=== PATIENT | female | born 1980 | race Two or more races ===

== ENCOUNTER 2016-08-19 01:44 | Emergency (ER) | payer BC ==
[~2016-08-19 01:44] MED LIST: ACET50TA PO; CILO0.3S OD; IBUP100SUS PO
[2016-08-19] MEDS ORDERED: ONDANSETRON 4MG/2ML VIAL (J2405) As Ordered ONE (03:08)
[2016-08-19] MEDS ORDERED: MORPHINE 4 MG/ML 1ML SYRINGE As Ordered ONE ×2 (03:09→04:27)
[2016-08-19 03:28] LABS: BASO % 0.4 % (0.0-1.0); EOS # 0.1 K/mm3 (0.0-0.50); EOS % 1.8 % (0.0-3.0); LARGE UNSTAINED CELL # 0.1 K/mm3 (0.0-0.4); LARGE UNSTAINED CELL % 1.7 % (0.0-4.0); LYMPH # 1.8 K/mm3 (1.5-4.5); LYMPH % 22.7 % (24.0-44.0); MEAN CORPUSCULAR HEMOGLOBIN 30.3 pg (27.0-33.0); MEAN CORPUSCULAR HGB CONC 33.3 g/dl (32.0-36.5); MEAN CORPUSCULAR VOLUME 90.9 fl (80.0-96.0); MONO # 0.4 K/mm3 (0.0-0.8); MONO % 4.6 % (0.0-5.0); NEUTROPHILS # 5.4 K/mm3 (1.8-7.7); NEUTROPHILS % 68.8 % (36.0-66.0); PLATELET COUNT, AUTOMATED 253 k/mm3 (150-450); RED CELL DISTRIBUTION WIDTH 11.8 % (11.5-14.5); WHITE BLOOD COUNT 7.9 K/mm3 (4.0-10.0)
[2016-08-19 03:45] LABS: ANION GAP 6 MEQ/L (8-16); BLOOD UREA NITROGEN 9 MG/DL (7-18); CALCIUM LEVEL 8.8 MG/DL (8.5-10.1); CARBON DIOXIDE LEVEL 28 MEQ/L (21-32); CHLORIDE LEVEL 109 MEQ/L (98-107); CREATININE FOR GFR 0.78 MG/DL (0.55-1.02); GLOMERULAR FILTRATION RATE > 60.0 (>60); GLUCOSE, FASTING 99 MG/DL (70-105); POTASSIUM SERUM 4.2 MEQ/L (3.5-5.1); SODIUM LEVEL 143 MEQ/L (136-145)
--- NOTE | 2016-08-19 04:13 | REP ---
Clinical: Epigastric and abdominal pain. Technique: Upright view of the chest with supine and upright views of the abdomen and pelvis. Findings: Frontal upright view of the chest demonstrates no acute cardiopulmonary process or free air below the diaphragm to suspect pneumoperitoneum. Supine and upright views of the abdomen and pelvis demonstrate nonspecific bowel gas pattern without obstruction or perforation. No organomegaly. No abnormal calcifications. Evidence for tubal ligation. Skeletal structures normal for age. Impression: Fecal stasis. Nonspecific bowel gas pattern. Signed by Tim Sanford MD 08/19/2016 04:05 A
[2016-08-19] MEDS ORDERED: ISOVUE-370 76% 100ML VIAL (Q9967) As Ordered ONE (05:19)
--- NOTE | 2016-08-19 06:00 | REPUSA ---
CLINICAL HISTORY: Abdominal pain. TECHNIQUE: Multiple axial, sagittal and coronal CT images were obtained through the abdomen and pelvi s after administration of intravenous contrast material. COMMENTS: Moderate large bowel fecal stasis. Moderate diffuse gaseous dilation of the colon. Thickening of the rectosigmoid junction with enhancement. Small sliding hiatal hernia. The liver is of uniform attenuation without mass or defect. There is no intra or extrahepatic biliary ductal dilatation. The spleen is normal. The gallbladder is within normal limits. The pancreas is of normal contour and attenuation characteristics. There is no evidence of adrenal mass. Both kidneys demonstrate prompt and equal nephrograms. The kidneys are normal in size, shape and conf iguration. There is no evidence of renal or ureteral mass. No renal or ureteral calculi are identifie d. There is no hydroureter or hydronephrosis. No evidence for appendicitis. No evidence for small or large bowel obstruction. There is no evidenc e of abdominal ascites or lymphadenopathy. There is no evidence of intrinsic or extrinsic bladder mass. There is no pelvic ascites or lymphadeno raquel. Images of the lung bases show no evidence of pleural or parenchymal mass. There are no pleural effusi ons. The bony structures are free of lytic or blastic lesions. IMPRESSION: Thickened, enhancing rectosigmoid junction suggestive of colitis. Moderate diffuse gaseous dilation of the colon. Small sliding hiatal hernia. Thank you for your kind referral of this patient.
[2016-08-19] MEDS ORDERED: NORCO 5/325MG TABLET (BULK) As Ordered ONE (06:53)
[2016-08-19] MEDS ORDERED: MAGNESIUM CITRATE 300 ML BTL As Ordered ONE (06:54)
--- NOTE | 2016-08-19 07:24 | EDDOCDS ---
Nurse's Notes [facility] Name: Yumi Segundo Age: 35 yrs Sex: Female : 1980 Arrival Date: 08/19/2016 Time: 01:44 Bed TR7 Private MD: Breana Moncada Diagnosis: Hemorrhoids and perianal venous thrombosis Presentation: 08/19 01:58 Presenting complaint: Patient states: Started 2 weeks ago with rectal pain. Tried OTC ld5 hemorrhoid meds with no relief. On Monday had the stomach bug and had diarrhea a few times. Once over that illness, hemorrhoids are back and worse. Pt also complains of feeling bloated and nauseous. Tried a suppository with little out and no relief. Risk factors: the patient reports no vaginal bleeding. Adult Sepsis Screening: The patient does not have new or worsening altered mentation. Patient's respiratory rate is less than 22. Systolic blood pressure is greater than 100. Patient has a qSOFA score of 0- Negative Sepsis Screen. Suicide/Homicide risk assessment- the patient denies having any suicidal and/or homicidal ideations and does not present with any other emotional, behavioral or mental health complaints. Status: Patient is not a sales agent protective service or dependent. Transition of care: patient was not received from another setting of care. 01:58 Acuity: FRANK Level 3 ld5 01:58 Method Of Arrival: Walkin/Carried/Asstd ld5 Triage Assessment: 02:03 General: Appears uncomfortable, Behavior is cooperative, crying. Pain: Location: ld5 rectum, lower abdominal pain Pain currently is 6 out of 10 on a pain scale. At worst was 10 out of 10 on a pain scale. HIV screening NA for this visit Offered previously. Neurological: Level of Consciousness is awake, alert. Respiratory: Airway is patent Respiratory effort is even, unlabored. GI: Reports bloating, constipation, hemorrhoids, lower abdominal pain, nausea. 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 Wellbutrin 75 mg Oral tab 1 tab daily - PMHx: Depression; Anxiety; - PSHx: Tubal ligation; - Social history: Smoking status: Patient uses tobacco products, current every day smoker. No barriers to communication noted, The patient speaks fluent Turkish, Speaks appropriately for age. - Family history: Not pertinent. - : The pt / caregiver states he / she is not on anticoagulants. Home medication list is obtained from the patient. - Exposure Risk Screening:: None identified. Screenin:25 Screening information is obtained from the patient. Fall risk: No risks identified. mlc Assistance ADL's: requires no assistance with activities of daily living. Abuse/DV Screen: The patient / caregiver reports he/she is: not in a situation that causes fear, pain or injury. Nutritional screening: The patient reports a change in bowel habits, constipation, The patient reports last bowel movement was 7 days ago. Advance Directives: Currently, there is no health care proxy. home support is adequate. Assessment: 03:25 General: Appears in no apparent distress, Behavior is cooperative, pleasant. Pain: mlc Location: right lower quadrant, left lower quadrant and anus Pain currently is 6 out of 10 on a pain scale. Neurological: Level of Consciousness is awake, alert, Oriented to person, place, time. Respiratory: Airway is patent Respiratory effort is even, unlabored, Respiratory pattern is regular. GI: Abdomen is non- distended Bowel sounds present X 4 quads. Abd is soft X 4 quads Abd is tender to palpation in right lower quadrant and left lower quadrant Reports constipation, nausea, no BM since last Monday. Derm: Skin is pink, warm & dry. 04:08 Reassessment: Patient appears in no apparent distress at this time. no significant mlc changes in pain, rated 5/10. resp easy/unlabored. . 04:32 Reassessment: pt medicated per order. resp easy/unlabored. . mlc 05:11 Reassessment: Patient appears in no apparent distress at this time. Patient states mlc feeling better. Patient states symptoms have improved. pain decreased to 2/10. resp easy/unlabored. . 05:31 General: Appears in no apparent distress, comfortable, pt returned from CT, tolerated mlc well. resp easy/unlabored. . 06:58 General: Appears in no apparent distress, comfortable, Behavior is cooperative. mlc Neurological: Level of Consciousness is awake, alert, Oriented to person, place, time. Respiratory: Airway is patent Respiratory effort is even, unlabored, Respiratory pattern is regular. Derm: Skin is pink, warm & dry. 07:22 General: Appears in no apparent distress, comfortable, Behavior is appropriate for age, ml6 cooperative. Pain: Denies pain. Neurological: No deficits noted. Level of Consciousness is awake, alert, Oriented to person, place, time. Cardiovascular: No deficits noted. Capillary refill < 3 seconds is brisk in bilateral fingers toes Heart tones S1 S2 present. Respiratory: No deficits noted. Airway is patent Respiratory effort is even, unlabored, Respiratory pattern is regular, symmetrical, Breath sounds are clear bilaterally. GI: Abdomen is flat, non- distended Bowel sounds present X 4 quads. Abd is soft and non tender X 4 quads. Vital Signs: 01:56 BP 140 / 85; Pulse 91; Resp 18; Temp 97.3; Pulse Ox 97% on R/A; Weight 77.11 kg (R); ld5 Height 5 ft. 6 in. (167.64 cm) (R); Pain 6/10; 04:08 BP 105 / 57; Pain 5/10; mlc 05:11 BP 100 / 56; Pulse 72; Resp 16; Pulse Ox 97% ; Pain 2/10; mlc 07:17 BP 112 / 61; Pulse 70; Resp 17; Temp 97.9(O); Pulse Ox 97% on R/A; lr2 01:56 Body Mass Index 27.44 (77.11 kg, 167.64 cm) ld5 Vitals: 01:56 Log In Time: August 19, 2016 at 01:44. ld5 ED Course: 01:46 Patient visited by Davin Ramirez Reg. pm4 01:46 Breana Moncada is Private Physician. pm4 01:46 Patient moved to Waiting pm4 02:02 Triage Initiated ld5 02:04 Patient visited by Rochelle Blum RN. ld5 02:05 Madelaine Stein,DANIELLA is Primary Nurse. jo3 02:05 Patient moved to 12 jo3 02:12 Rajeev Zamudio DO is PHCP. gk1 02:12 Dru Benavides DO is Attending Physician. gk1 02:25 Rajeev Zamudio DO is PHCP. mm11 03:25 The patient / caregiver is instructed regarding the plan of care and ED course. [facility] 03:25 Inserted saline lock: 20 gauge in right antecubital area and blood collected. The [facility] patient tolerated the procedure well. 03:27 Patient visited by Madelaine Stein RN. mlc 03:39 Patient visited by Rajeev Zamudio DO. gk1 03:39 Patient visited by Rajeev Zamudio DO. gk1 04:03 Patient visited by Rajeev Zamudio DO. gk1 04:07 [facility] Payment Agreement was scanned into [employer] and attached to record. hs2 04:08 Lactic Acid (Vazquez tube on ice) Sent. mlc 04:09 Patient visited by Madelaine Stein RN. mlc 04:09 Patient name changed from Yumi\S\\S\[place]\S\ to Yumi\S\[place]\S\[place]. EDMS 04:32 Patient visited by Madelaine Stein RN. mlc 04:36 Abdomen, Flat\E\Upright,PA Chest Returned. EDMS 05:12 Patient visited by Madelaine Stein RN. mlc 05:31 Patient visited by Madelaine Stein RN. mlc 06:28 Patient visited by Bandar Zuleta PCA. kb5 06:40 CT ABD & PELVIS: IV Contrast Only Returned. EDMS 06:59 Patient visited by Madelaine Stein RN. mlc 07:03 Patient visited by Rajeev Zamudio DO. gk1 07:04 Geovanni Dela Cruz DO is Referral Physician. gk1 07:20 Patient moved to TR7 ml6 07:23 Discontinued IV bleeding controlled, pressure dressing applied, No redness/swelling at ml6 site. No procedures done that require assistance. Administered Medications: 03:24 Drug: Ondansetron 4 mg [ondansetron HCl 2 mg/mL intravenous solution (2 mL)] Route: mlc IVP; Site: left antecubital; 04:08 Follow up: Response: Nausea is decreased [facility] 03:25 Drug: morphine 4 mg [morphine 4 mg/mL intravenous cartridge (1 mL)] Route: IVP; Site: mlc left antecubital; 04:08 Follow up: BP 105 / 57; Pain 5/10 Adult; Response: Pain is decreased [facility] 04:31 Drug: morphine 4 mg [morphine 4 mg/mL intravenous cartridge (1 mL)] Route: IVP; Site: mlc left antecubital; 05:11 Follow up: BP 100 / 56; Pulse 72 bpm; Resp 16 bpm; Pulse Ox 97% ; Pain 2/10 Adult; mlc Response: Pain is decreased 06:57 Drug: HYDROcodone-acetaminophen 4 pack- 1 packets [hydrocodone 5 mg-acetaminophen 325 mlc mg tablet (1 tabs)] {Co-Signature: ko2 (Carmen Miranda RN).} Route: PO; 06:58 Follow up: Response: Med's dispensed home mlc 06:57 Drug: Magnesium Citrate 300 ml [magnesium citrate oral solution (300 mL)] Route: PO; mlc 06:58 Follow up: Response: Med's dispensed home mlc Order Results: Lab Order: CBC with Diff; SPEC'M 08/19/16 03:17 Test: WHITE BLOOD COUNT; Value: 7.9; Range: 4.0-10.0; Units: K/mm3; Status: F Test: RED BLOOD COUNT; Value: 4.40; Range: 4.00-5.40; Units: M/mm3; Status: F Test: HEMOGLOBIN; Value: 13.4; Range: 12.0-16.0; Units: g/dl; Status: F Test: HEMATOCRIT; Value: 40.0; Range: 36.0-47.0; Units: %; Status: F Test: MEAN CORPUSCULAR VOLUME; Value: 90.9; Range: 80.0-96.0; Units: fl; Status: F Test: MEAN CORPUSCULAR HEMOGLOBIN; Value: 30.3; Range: 27.0-33.0; Units: pg; Status: F Test: MEAN CORPUSCULAR HGB CONC; Value: 33.3; Range: 32.0-36.5; Units: g/dl; Status: F Test: RED CELL DISTRIBUTION WIDTH; Value: 11.8; Range: 11.5-14.5; Units: %; Status: F Test: PLATELET COUNT, AUTOMATED; Value: 253; Range: 150-450; Units: k/mm3; Status: F Test: NEUTROPHILS %; Value: 68.8; Range: 36.0-66.0; Abnormal: Above high normal; Units: %; Status: F Test: LYMPH %; Value: 22.7; Range: 24.0-44.0; Abnormal: Below low normal; Units: %; Status: F Test: MONO %; Value: 4.6; Range: 0.0-5.0; Units: %; Status: F Test: EOS %; Value: 1.8; Range: 0.0-3.0; Units: %; Status: F Test: BASO %; Value: 0.4; Range: 0.0-1.0; Units: %; Status: F Test: LARGE UNSTAINED CELL %; Value: 1.7; Range: 0.0-4.0; Units: %; Status: F Test: NEUTROPHILS #; Value: 5.4; Range: 1.8-7.7; Units: K/mm3; Status: F Test: LYMPH #; Value: 1.8; Range: 1.5-4.5; Units: K/mm3; Status: F Test: MONO #; Value: 0.4; Range: 0.0-0.8; Units: K/mm3; Status: F Test: EOS #; Value: 0.1; Range: 0.0-0.50; Units: K/mm3; Status: F Test: BASO #; Value: 0.0; Range: 0.0-0.2; Units: K/mm3; Status: F Test: LARGE UNSTAINED CELL #; Value: 0.1; Range: 0.0-0.4; Units: K/mm3; Status: F Lab Order: [facility]; SPEC'M 08/19/16 03:17 Test: GLUCOSE, FASTING; Value: 99; Range: 70-105; Units: MG/DL; Status: F Test: BLOOD UREA NITROGEN; Value: 9; Range: 7-18; Units: MG/DL; Status: F Test: CREATININE FOR GFR; Value: 0.78; Range: 0.55-1.02; Units: MG/DL; Status: F Test: GLOMERULAR FILTRATION RATE; Value: > 60.0; Range: >60; Status: F Test: SODIUM LEVEL; Value: 143; Range: 136-145; Units: MEQ/L; Status: F Test: POTASSIUM SERUM; Value: 4.2; Range: 3.5-5.1; Units: MEQ/L; Status: F Test: CHLORIDE LEVEL; Value: 109; Range: 98-107; Abnormal: Above high normal; Units: MEQ/L; Status: F Test: CARBON DIOXIDE LEVEL; Value: 28; Range: 21-32; Units: MEQ/L; Status: F Test: ANION GAP; Value: 6; Range: 8-16; Abnormal: Below low normal; Units: MEQ/L; Status: F Test: CALCIUM LEVEL; Value: 8.8; Range: 8.5-10.1; Units: MG/DL; Status: F Test Note: ; Units are mL/min/1.73 m2 Chronic Kidney Disease Staging per NKF: Stage I & II GFR >=60 Normal to Mildly Decreased Stage III GFR 30-59 Moderately Decreased Stage IV GFR 15-29 Severely Decreased Stage V GFR <15 Very Little GFR Left ESRD GFR <15 on LINK TRAINER MECHANIC Lab Order: Lipase; SPEC'M 08/19/16 03:17 Test: LIPASE; Value: 115; Range: 73-393; Units: U/L; Status: F Lab Order: Lactic Acid (Vazquez tube on ice); SPEC'M 08/19/16 04:06 Test: LACTIC ACID SEPSIS PROTOCOL; Value: 0.5; Range: 0.4-2.0; Units: MMOL/L; Status: F Radiology Order: Abdomen, Flat\E\Upright,PA Chest Test: Abdomen, Flat\E\Upright,PA Chest REASON FOR EXAMINATION: Abdomen Pain; Clinical: Epigastric and abdominal pain.; ; Technique: Upright view of the chest with supine and upright views of the; abdomen and pelvis.; ; Findings: Frontal upright view of the chest demonstrates no acute; cardiopulmonary process or free air below the diaphragm to suspect; pneumoperitoneum. Supine and upright views of the abdomen and pelvis demonstrate; nonspecific bowel gas pattern without obstruction or perforation. No; organomegaly. No abnormal calcifications. Evidence for tubal ligation.; Skeletal structures normal for age.; ; Impression:; Fecal stasis. Nonspecific bowel gas pattern.; ; ; Signed by; Tim Sanford MD 08/19/2016 04:05 A; Radiology Order: CT ABD & PELVIS: IV Contrast Only Test: CT ABD & PELVIS: IV Contrast Only REASON FOR EXAMINATION: Abdomen Pain; ; CLINICAL HISTORY: Abdominal pain.; TECHNIQUE: Multiple axial, sagittal and coronal CT images were obtained through the abdomen and pelvi; s after administration of intravenous contrast material.; COMMENTS:; Moderate large bowel fecal stasis.; Moderate diffuse gaseous dilation of the colon.; Thickening of the rectosigmoid junction with enhancement.; Small sliding hiatal hernia.; The liver is of uniform attenuation without mass or defect. There is no intra or extrahepatic biliary; ductal dilatation. The spleen is normal. The gallbladder is within normal limits. The pancreas is of; normal contour and attenuation characteristics. There is no evidence of adrenal mass.; Both kidneys demonstrate prompt and equal nephrograms. The kidneys are normal in size, shape and conf; iguration. There is no evidence of renal or ureteral mass. No renal or ureteral calculi are identifie; d. There is no hydroureter or hydronephrosis.; No evidence for appendicitis. No evidence for small or large bowel obstruction. There is no evidenc; e of abdominal ascites or lymphadenopathy.; There is no evidence of intrinsic or extrinsic bladder mass. There is no pelvic ascites or lymphadeno; raquel.; Images of the lung bases show no evidence of pleural or parenchymal mass. There are no pleural effusi; ons.; The bony structures are free of lytic or blastic lesions.; IMPRESSION:; Thickened, enhancing rectosigmoid junction suggestive of colitis.; Moderate diffuse gaseous dilation of the colon.; Small sliding hiatal hernia.; Thank you for your kind referral of this patient.; ; Outcome: 07:07 Discharge ordered by Provider. gk1 07:23 Discharge Assessment: patient administered narcotics - yes. Pt provided with safe ml6 discharge. The following High Risk Discharge criteria are identified: None. Discharged to home ambulatory, with significant other. Condition: improved. Discharge instructions given to patient, Instructed on discharge instructions, follow up and referral plans. medication usage, Demonstrated understanding of instructions, medications, Pt was receptive of discharge instructions/ teaching. Prescriptions given X 1. No special radiology studies were completed. Property sent home with patient. :Personal belongings accompany Pt. 07:24 Patient left the ED. ml6 Signatures: Dispatcher [employer] EDMS Candy Narvaez RN RN jo3 Bandar Zuleta, JESSY TOOL SETTER kb5 Dru Benavides, DO DO mm11 Dru Gilbert RN RN ml6 Rochelle Blum RN RN ld5 Madelaine Stein RN RN [facility] Erin Davis, Reg Reg hs2 Rajeev Zamudio, DO DO gk1 Davin Ramirez, Reg Reg pm4 Rochelle Vergara lr2 Carmen Miranda RN ko2 MTDD
--- NOTE | 2016-08-19 07:24 | EDDOCDS ---
Physician Documentation [facility] Name: Yumi Segundo Age: 35 yrs Sex: Female : 1980 Arrival Date: 08/19/2016 Time: 01:44 Bed TR7 Private MD: Breana Moncada Disposition: 08/19 07:12 I have independently interviewed and examined the patient, and I agree with the mm11 investigation, diagnosis and treatment plan as documented by the Resident. Disposition: 08/19/16 07:07 Discharged to Home/Self Care. Impression: Hemorrhoids and perianal venous thrombosis. - Condition is Stable. - Discharge Instructions: Hemorrhoidectomy, Care After, Hemorrhoids, Hemorrhoids, [id number]. - Prescriptions for Percocet 5- 325 mg Oral Tablet - take 1 tablet by ORAL route every 6 hours As needed MDD: 4 tabs; 20 tablet. - Medication Reconciliation, Local Pharmacy Hours form. - Follow up: Geovanni Dela Cruz DO; When: 08/22/2016; Reason: Recheck today's complaints, Continuance of care, Ligation/removal of external hemorrhoids. - Problem is new. - Symptoms are unchanged. Historical: - Allergies: no known allergies; - Home Meds: 1. Wellbutrin 75 mg Oral tab 1 tab daily - PMHx: Depression; Anxiety; - PSHx: Tubal ligation; - Social history: Smoking status: Patient uses tobacco products, current every day smoker. No barriers to communication noted, The patient speaks fluent Gibraltarian, Speaks appropriately for age. - Family history: Not pertinent. - : The pt / caregiver states he / she is not on anticoagulants. Home medication list is obtained from the patient. - Exposure Risk Screening:: None identified. 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 6 in. (167.64 cm) (R); Pain 6/10; 04:08 BP 105 / 57; Pain 5/10; mlc 05:11 BP 100 / 56; Pulse 72; Resp 16; Pulse Ox 97% ; Pain 2/10; mlc 07:17 BP 112 / 61; Pulse 70; Resp 17; Temp 97.9(O); Pulse Ox 97% on R/A; lr2 01:56 Body Mass Index 27.44 (77.11 kg, 167.64 cm) ld5 MDM: 03:01 IV Saline Lock ordered. mm11 03:01 morphine 4 mg IVP every 30 minutes; Document pain score/vitals after each dose (Hold if mm11 SBP < 90mmHg) x2 ordered. 03:01 Ondansetron 4 mg IVP once ordered. mm11 03:02 CBC with Diff Ordered. EDMS 03:02 BMP Ordered. EDMS 03:02 Lipase Ordered. EDMS 03:03 Abdomen, Flat\E\Upright,PA Chest Ordered. EDMS 03:38 CBC with Diff Reviewed. mm11 03:39 Lactic Acid (Vazquez tube on ice) Ordered. EDMS 03:48 Financial registration complete. hs2 04:04 BMP Reviewed. gk1 04:04 Lipase Reviewed. gk1 04:07 [facility] Payment Agreement was scanned into [employer] and attached to record. hs2 05:14 CT ABD & PELVIS: IV Contrast Only Ordered. EDMS 05:53 Lactic Acid (Vazquez tube on ice) Reviewed. mm11 05:53 Abdomen, Flat\E\Upright,PA Chest Reviewed. mm11 06:44 HYDROcodone-acetaminophen 4 pack- 5 mg-325 mg 1 packets PO Per package directions; mm11 Dispense with patient. 1 po q4h prn for pain ordered. 06:44 Magnesium Citrate Liquid 300 ml PO once; Dispense home with pt. ordered. mm11 07:16 CT ABD & PELVIS: IV Contrast Only Reviewed. mm11 Administered Medications: 03:24 Drug: Ondansetron 4 mg [ondansetron HCl 2 mg/mL intravenous solution (2 mL)] Route: mlc IVP; Site: left antecubital; 04:08 Follow up: Response: Nausea is decreased [facility] 03:25 Drug: morphine 4 mg [morphine 4 mg/mL intravenous cartridge (1 mL)] Route: IVP; Site: mlc left antecubital; 04:08 Follow up: BP 105 / 57; Pain 5/10 Adult; Response: Pain is decreased [facility] 04:31 Drug: morphine 4 mg [morphine 4 mg/mL intravenous cartridge (1 mL)] Route: IVP; Site: mlc left antecubital; 05:11 Follow up: BP 100 / 56; Pulse 72 bpm; Resp 16 bpm; Pulse Ox 97% ; Pain 2/10 Adult; mlc Response: Pain is decreased 06:57 Drug: HYDROcodone-acetaminophen 4 pack- 1 packets [hydrocodone 5 mg-acetaminophen 325 mlc mg tablet (1 tabs)] {Co-Signature: ko2 (Carmen Miranda RN).} Route: PO; 06:58 Follow up: Response: Med's dispensed home mlc 06:57 Drug: Magnesium Citrate 300 ml [magnesium citrate oral solution (300 mL)] Route: PO; mlc 06:58 Follow up: Response: Med's dispensed home mlc Signatures: Dispatcher [employer] EDMS Dru Benavides, DO DO mm11 Dru Gilbert RN RN ml6 Rochelle Blum RN RN ld5 Madelaine Stein RN RN mlc Erin Davis, Reg Reg hs2 Gino Zamudiorpreet, DO DO gk1 Carmen Miranda RN ko2 The chart was reviewed and I authenticate all verbal orders and agree with the evaluation and treatment provided.Attachments: 04:07 [facility] Payment Agreement hs2 MTDD
--- NOTE | 2016-08-21 08:25 | EDDOCDS ---
Physician Documentation [facility] Name: Yumi Segundo Age: 35 yrs Sex: Female : 1980 Arrival Date: 08/19/2016 Time: 01:44 Bed TR7 Private MD: Breana Moncada Disposition: 08/19 07:12 I have independently interviewed and examined the patient, and I agree with the mm11 investigation, diagnosis and treatment plan as documented by the Resident. Disposition: 08/19/16 07:07 Discharged to Home/Self Care. Impression: Hemorrhoids and perianal venous thrombosis. - Condition is Stable. - Discharge Instructions: Hemorrhoidectomy, Care After, Hemorrhoids, Hemorrhoids, [id number]. - Prescriptions for Percocet 5- 325 mg Oral Tablet - take 1 tablet by ORAL route every 6 hours As needed MDD: 4 tabs; 20 tablet. - Medication Reconciliation, Local Pharmacy Hours form. - Follow up: Geovanni Dela Cruz DO; When: 08/22/2016; Reason: Recheck today's complaints, Continuance of care, Ligation/removal of external hemorrhoids. - Problem is new. - Symptoms are unchanged. Historical: - Allergies: no known allergies; - Home Meds: 1. Wellbutrin 75 mg Oral tab 1 tab daily - PMHx: Depression; Anxiety; - PSHx: Tubal ligation; - Social history: Smoking status: Patient uses tobacco products, current every day smoker. No barriers to communication noted, The patient speaks fluent [place], Speaks appropriately for age. - Family history: Not pertinent. - : The pt / caregiver states he / she is not on anticoagulants. Home medication list is obtained from the patient. - Exposure Risk Screening:: None identified. BOOKER: 01:56 LMP 08/01/2016 ld5 Vital Signs: 01:56 BP 140 / 85; Pulse 91; Resp 18; Temp 97.3; Pulse Ox 97% on R/A; Weight 77.11 kg / 170 ld5 lbs (R); Height 5 ft. 6 in. (167.64 cm) (R); Pain 6/10; 04:08 BP 105 / 57; Pain 5/10; mlc 05:11 BP 100 / 56; Pulse 72; Resp 16; Pulse Ox 97% ; Pain 2/10; mlc 07:17 BP 112 / 61; Pulse 70; Resp 17; Temp 97.9(O); Pulse Ox 97% on R/A; lr2 01:56 Body Mass Index 27.44 (77.11 kg, 167.64 cm) ld5 MDM: 03:01 IV Saline Lock ordered. mm11 03:01 morphine 4 mg IVP every 30 minutes; Document pain score/vitals after each dose (Hold if mm11 SBP < 90mmHg) x2 ordered. 03:01 Ondansetron 4 mg IVP once ordered. mm11 03:02 CBC with Diff Ordered. EDMS 03:02 BMP Ordered. EDMS 03:02 Lipase Ordered. EDMS 03:03 Abdomen, Flat\E\Upright,PA Chest Ordered. EDMS 03:38 CBC with Diff Reviewed. mm11 03:39 Lactic Acid (Vazquez tube on ice) Ordered. EDMS 03:48 Financial registration complete. hs2 04:04 BMP Reviewed. gk1 04:04 Lipase Reviewed. gk1 04:07 [facility] [place] Agreement was scanned into [employer] and attached to record. hs2 05:14 CT ABD & PELVIS: IV Contrast Only Ordered. EDMS 05:53 Lactic Acid (Vazquez tube on ice) Reviewed. mm11 05:53 Abdomen, Flat\E\Upright,PA Chest Reviewed. mm11 06:44 HYDROcodone-acetaminophen 4 pack- 5 mg-325 mg 1 packets PO Per package directions; mm11 Dispense with patient. 1 po q4h prn for pain ordered. 06:44 Magnesium Citrate Liquid 300 ml PO once; Dispense home with pt. ordered. mm11 07:16 CT ABD & PELVIS: IV Contrast Only Reviewed. mm11 13:41 T-Sheet-- Draft Copy was scanned into [employer] and attached to record. gb 13:41 Radiology Report was scanned into [employer] and attached to record. gb Administered Medications: 03:24 Drug: Ondansetron 4 mg [ondansetron HCl 2 mg/mL intravenous solution (2 mL)] Route: mlc IVP; Site: left antecubital; 04:08 Follow up: Response: Nausea is decreased [facility] [place] Drug: morphine 4 mg [morphine 4 mg/mL intravenous cartridge (1 mL)] Route: IVP; Site: mlc left antecubital; 04:08 Follow up: BP 105 / 57; Pain 5/10 Adult; Response: Pain is decreased mlc 04:31 Drug: morphine 4 mg [morphine 4 mg/mL intravenous cartridge (1 mL)] Route: IVP; Site: mlc left antecubital; 05:11 Follow up: BP 100 / 56; Pulse 72 bpm; Resp 16 bpm; Pulse Ox 97% ; Pain 2/10 Adult; mlc Response: Pain is decreased 06:57 Drug: HYDROcodone-acetaminophen 4 pack- 1 packets [hydrocodone 5 mg-acetaminophen 325 mlc mg tablet (1 tabs)] {Co-Signature: ko2 (Carmen Miranda RN).} Route: PO; 06:58 Follow up: Response: Med's dispensed home mlc 06:57 Drug: Magnesium Citrate 300 ml [magnesium citrate oral solution (300 mL)] Route: PO; mlc 06:58 Follow up: Response: Med's dispensed home mlc Signatures: Dispatcher [employer] EDMS Janey Ennis, Reg Reg gb Dru Benavides, DO DO mm11 Dru Gilbert RN RN ml6 Rochelle Blum RN RN ld5 Madelaine Stein RN RN [facility] [place] Erin Davis, Reg Reg hs2 Rajeev Zamudio, DO DO gk1 Carmen Miranda RN ko2 The chart was reviewed and I authenticate all verbal orders and agree with the evaluation and treatment provided.Attachments: 04:07 [facility] Payment Agreement hs2 13:41 T-Sheet-- Draft Copy gb Chart Complete MTDD
--- NOTE | 2016-08-21 08:25 | EDDOCDS ---
Nurse's Notes [facility] Name: Yumi Segundo Age: 35 yrs Sex: Female : 1980 Arrival Date: 08/19/2016 Time: 01:44 Bed TR7 Private MD: Breana Moncada Diagnosis: Hemorrhoids and perianal venous thrombosis Presentation: 08/19 01:58 Presenting complaint: Patient states: Started 2 weeks ago with rectal pain. Tried OTC ld5 hemorrhoid meds with no relief. On Monday had the stomach bug and had diarrhea a few times. Once over that illness, hemorrhoids are back and worse. Pt also complains of feeling bloated and nauseous. Tried a suppository with little out and no relief. Risk factors: the patient reports no vaginal bleeding. Adult Sepsis Screening: The patient does not have new or worsening altered mentation. Patient's respiratory rate is less than 22. Systolic blood pressure is greater than 100. Patient has a qSOFA score of 0- Negative Sepsis Screen. Suicide/Homicide risk assessment- the patient denies having any suicidal and/or homicidal ideations and does not present with any other emotional, behavioral or mental health complaints. Status: Patient is not a consumer services consultant or dependent. Transition of care: patient was not received from another setting of care. 01:58 Acuity: FRANK Level 3 ld5 01:58 Method Of Arrival: Walkin/Carried/Asstd ld5 Triage Assessment: 02:03 General: Appears uncomfortable, Behavior is cooperative, crying. Pain: Location: ld5 rectum, lower abdominal pain Pain currently is 6 out of 10 on a pain scale. At worst was 10 out of 10 on a pain scale. HIV screening NA for this visit Offered previously. Neurological: Level of Consciousness is awake, alert. Respiratory: Airway is patent Respiratory effort is even, unlabored. GI: Reports bloating, constipation, hemorrhoids, lower abdominal pain, nausea. MANAGER DOCUMENT CONTROL: 01:56 LMP 08/01/2016 ld5 Historical: - Allergies: no known allergies; - Home Meds: 1. Wellbutrin 75 mg Oral tab 1 tab daily - PMHx: Depression; Anxiety; - PSHx: Tubal ligation; - Social history: Smoking status: Patient uses tobacco products, current every day smoker. No barriers to communication noted, The patient speaks fluent Slovak, Speaks appropriately for age. - Family history: Not pertinent. - : The pt / caregiver states he / she is not on anticoagulants. Home medication list is obtained from the patient. - Exposure Risk Screening:: None identified. Screenin:25 Screening information is obtained from the patient. Fall risk: No risks identified. mlc Assistance ADL's: requires no assistance with activities of daily living. Abuse/DV Screen: The patient / caregiver reports he/she is: not in a situation that causes fear, pain or injury. Nutritional screening: The patient reports a change in bowel habits, constipation, The patient reports last bowel movement was 7 days ago. Advance Directives: Currently, there is no health care proxy. home support is adequate. Assessment: 03:25 General: Appears in no apparent distress, Behavior is cooperative, pleasant. Pain: mlc Location: right lower quadrant, left lower quadrant and anus Pain currently is 6 out of 10 on a pain scale. Neurological: Level of Consciousness is awake, alert, Oriented to person, place, time. Respiratory: Airway is patent Respiratory effort is even, unlabored, Respiratory pattern is regular. GI: Abdomen is non- distended Bowel sounds present X 4 quads. Abd is soft X 4 quads Abd is tender to palpation in right lower quadrant and left lower quadrant Reports constipation, nausea, no BM since last Monday. Derm: Skin is pink, warm & dry. 04:08 Reassessment: Patient appears in no apparent distress at this time. no significant mlc changes in pain, rated 5/10. resp easy/unlabored. . 04:32 Reassessment: pt medicated per order. resp easy/unlabored. . mlc 05:11 Reassessment: Patient appears in no apparent distress at this time. Patient states mlc feeling better. Patient states symptoms have improved. pain decreased to 2/10. resp easy/unlabored. . 05:31 General: Appears in no apparent distress, comfortable, pt returned from CT, tolerated mlc well. resp easy/unlabored. . 06:58 General: Appears in no apparent distress, comfortable, Behavior is cooperative. mlc Neurological: Level of Consciousness is awake, alert, Oriented to person, place, time. Respiratory: Airway is patent Respiratory effort is even, unlabored, Respiratory pattern is regular. Derm: Skin is pink, warm & dry. 07:22 General: Appears in no apparent distress, comfortable, Behavior is appropriate for age, ml6 cooperative. Pain: Denies pain. Neurological: No deficits noted. Level of Consciousness is awake, alert, Oriented to person, place, time. Cardiovascular: No deficits noted. Capillary refill < 3 seconds is brisk in bilateral fingers toes Heart tones S1 S2 present. Respiratory: No deficits noted. Airway is patent Respiratory effort is even, unlabored, Respiratory pattern is regular, symmetrical, Breath sounds are clear bilaterally. GI: Abdomen is flat, non- distended Bowel sounds present X 4 quads. Abd is soft and non tender X 4 quads. Vital Signs: 01:56 BP 140 / 85; Pulse 91; Resp 18; Temp 97.3; Pulse Ox 97% on R/A; Weight 77.11 kg (R); ld5 Height 5 ft. 6 in. (167.64 cm) (R); Pain 6/10; 04:08 BP 105 / 57; Pain 5/10; mlc 05:11 BP 100 / 56; Pulse 72; Resp 16; Pulse Ox 97% ; Pain 2/10; mlc 07:17 BP 112 / 61; Pulse 70; Resp 17; Temp 97.9(O); Pulse Ox 97% on R/A; lr2 01:56 Body Mass Index 27.44 (77.11 kg, 167.64 cm) ld5 Vitals: 01:56 Log In Time: August 19, 2016 at 01:44. ld5 ED Course: 01:46 Patient visited by Davin Ramirez Reg. pm4 01:46 Breana Moncada is Private Physician. pm4 01:46 Patient moved to Waiting pm4 02:02 Triage Initiated ld5 02:04 Patient visited by Rochelle Blum RN. ld5 02:05 Madelaine Stein,DANIELLA is Primary Nurse. jo3 02:05 Patient moved to 12 jo3 02:12 Rajeev Zamudio DO is PHCP. gk1 02:12 Dru Benavides DO is Attending Physician. gk1 02:25 Rajeev Zamudio DO is PHCP. mm11 03:25 The patient / caregiver is instructed regarding the plan of care and ED course. [facility] [place] 03:25 Inserted saline lock: 20 gauge in right antecubital area and blood collected. The [facility] patient tolerated the procedure well. 03:27 Patient visited by Madelaine Stein RN. mlc 03:39 Patient visited by Rajeev Zamudio DO. gk1 03:39 Patient visited by Rajeev Zamudio DO. gk1 04:03 Patient visited by Rajeev Zamudio DO. gk1 04:07 [facility] Payment Agreement was scanned into [employer] and attached to record. hs2 04:08 Lactic Acid (Vazuqez tube on ice) Sent. mlc 04:09 Patient visited by Madelaine Stein RN. mlc 04:09 Patient name changed from Yumi\S\\S\Alburnett\S\ to Yumi\S\Anahi\S\Alburnett. EDMS 04:32 Patient visited by Madelaine Stein RN. mlc 04:36 Abdomen, Flat\E\Upright,PA Chest Returned. EDMS 05:12 Patient visited by Madelaine Stein RN. mlc 05:31 Patient visited by Madelaine Stein RN. mlc 06:28 Patient visited by Bandar Zuleta PCA. kb5 06:40 CT ABD & PELVIS: IV Contrast Only Returned. EDMS 06:59 Patient visited by Madelaine Stein RN. mlc 07:03 Patient visited by Rajeev Zamudio DO. gk1 07:04 Geovanni Dela Cruz DO is Referral Physician. gk1 07:20 Patient moved to TR7 ml6 07:23 Discontinued IV bleeding controlled, pressure dressing applied, No redness/swelling at ml6 site. No procedures done that require assistance. 13:41 T-Sheet-- Draft Copy was scanned into [employer] and attached to record. gb 13:41 Radiology Report was scanned into [employer] and attached to record. gb Administered Medications: 03:24 Drug: Ondansetron 4 mg [ondansetron HCl 2 mg/mL intravenous solution (2 mL)] Route: mlc IVP; Site: left antecubital; 04:08 Follow up: Response: Nausea is decreased [facility] 03:25 Drug: morphine 4 mg [morphine 4 mg/mL intravenous cartridge (1 mL)] Route: IVP; Site: mlc left antecubital; 04:08 Follow up: BP 105 / 57; Pain 5/10 Adult; Response: Pain is decreased [facility] 04:31 Drug: morphine 4 mg [morphine 4 mg/mL intravenous cartridge (1 mL)] Route: IVP; Site: mlc left antecubital; 05:11 Follow up: BP 100 / 56; Pulse 72 bpm; Resp 16 bpm; Pulse Ox 97% ; Pain 2/10 Adult; mlc Response: Pain is decreased 06:57 Drug: HYDROcodone-acetaminophen 4 pack- 1 packets [hydrocodone 5 mg-acetaminophen 325 mlc mg tablet (1 tabs)] {Co-Signature: ko2 (Carmen Miranda RN).} Route: PO; 06:58 Follow up: Response: Med's dispensed home mlc 06:57 Drug: Magnesium Citrate 300 ml [magnesium citrate oral solution (300 mL)] Route: PO; mlc 06:58 Follow up: Response: Med's dispensed home mlc Order Results: Lab Order: CBC with Diff; SPEC'M 08/19/16 03:17 Test: WHITE BLOOD COUNT; Value: 7.9; Range: 4.0-10.0; Units: K/mm3; Status: F Test: RED BLOOD COUNT; Value: 4.40; Range: 4.00-5.40; Units: M/mm3; Status: F Test: HEMOGLOBIN; Value: 13.4; Range: 12.0-16.0; Units: g/dl; Status: F Test: HEMATOCRIT; Value: 40.0; Range: 36.0-47.0; Units: %; Status: F Test: MEAN CORPUSCULAR VOLUME; Value: 90.9; Range: 80.0-96.0; Units: fl; Status: F Test: MEAN CORPUSCULAR HEMOGLOBIN; Value: 30.3; Range: 27.0-33.0; Units: pg; Status: F Test: MEAN CORPUSCULAR HGB CONC; Value: 33.3; Range: 32.0-36.5; Units: g/dl; Status: F Test: RED CELL DISTRIBUTION WIDTH; Value: 11.8; Range: 11.5-14.5; Units: %; Status: F Test: PLATELET COUNT, AUTOMATED; Value: 253; Range: 150-450; Units: k/mm3; Status: F Test: NEUTROPHILS %; Value: 68.8; Range: 36.0-66.0; Abnormal: Above high normal; Units: %; Status: F Test: LYMPH %; Value: 22.7; Range: 24.0-44.0; Abnormal: Below low normal; Units: %; Status: F Test: MONO %; Value: 4.6; Range: 0.0-5.0; Units: %; Status: F Test: EOS %; Value: 1.8; Range: 0.0-3.0; Units: %; Status: F Test: BASO %; Value: 0.4; Range: 0.0-1.0; Units: %; Status: F Test: LARGE UNSTAINED CELL %; Value: 1.7; Range: 0.0-4.0; Units: %; Status: F Test: NEUTROPHILS #; Value: 5.4; Range: 1.8-7.7; Units: K/mm3; Status: F Test: LYMPH #; Value: 1.8; Range: 1.5-4.5; Units: K/mm3; Status: F Test: MONO #; Value: 0.4; Range: 0.0-0.8; Units: K/mm3; Status: F Test: EOS #; Value: 0.1; Range: 0.0-0.50; Units: K/mm3; Status: F Test: BASO #; Value: 0.0; Range: 0.0-0.2; Units: K/mm3; Status: F Test: LARGE UNSTAINED CELL #; Value: 0.1; Range: 0.0-0.4; Units: K/mm3; Status: F Lab Order: [facility]; SPEC'M 08/19/16 03:17 Test: GLUCOSE, FASTING; Value: 99; Range: 70-105; Units: MG/DL; Status: F Test: BLOOD UREA NITROGEN; Value: 9; Range: 7-18; Units: MG/DL; Status: F Test: CREATININE FOR GFR; Value: 0.78; Range: 0.55-1.02; Units: MG/DL; Status: F Test: GLOMERULAR FILTRATION RATE; Value: > 60.0; Range: >60; Status: F Test: SODIUM LEVEL; Value: 143; Range: 136-145; Units: MEQ/L; Status: F Test: POTASSIUM SERUM; Value: 4.2; Range: 3.5-5.1; Units: MEQ/L; Status: F Test: CHLORIDE LEVEL; Value: 109; Range: 98-107; Abnormal: Above high normal; Units: MEQ/L; Status: F Test: CARBON DIOXIDE LEVEL; Value: 28; Range: 21-32; Units: MEQ/L; Status: F Test: ANION GAP; Value: 6; Range: 8-16; Abnormal: Below low normal; Units: MEQ/L; Status: F Test: CALCIUM LEVEL; Value: 8.8; Range: 8.5-10.1; Units: MG/DL; Status: F Test Note: ; Units are mL/min/1.73 m2 Chronic Kidney Disease Staging per NKF: Stage I & II GFR >=60 Normal to Mildly Decreased Stage III GFR 30-59 Moderately Decreased Stage IV GFR 15-29 Severely Decreased Stage V GFR <15 Very Little GFR Left ESRD GFR <15 on [place] Lab Order: Lipase; SPEC'M 08/19/16 03:17 Test: LIPASE; Value: 115; Range: 73-393; Units: U/L; Status: F Lab Order: Lactic Acid (Vazquez tube on ice); SPEC'M 08/19/16 04:06 Test: LACTIC ACID SEPSIS PROTOCOL; Value: 0.5; Range: 0.4-2.0; Units: MMOL/L; Status: F Radiology Order: Abdomen, Flat\E\Upright,PA Chest Test: Abdomen, Flat\E\Upright,PA Chest REASON FOR EXAMINATION: Abdomen Pain; Clinical: Epigastric and abdominal pain.; ; Technique: Upright view of the chest with supine and upright views of the; abdomen and pelvis.; ; Findings: Frontal upright view of the chest demonstrates no acute; cardiopulmonary process or free air below the diaphragm to suspect; pneumoperitoneum. Supine and upright views of the abdomen and pelvis demonstrate; nonspecific bowel gas pattern without obstruction or perforation. No; organomegaly. No abnormal calcifications. Evidence for tubal ligation.; Skeletal structures normal for age.; ; Impression:; Fecal stasis. Nonspecific bowel gas pattern.; ; ; Signed by; Tim Sanford MD 08/19/2016 04:05 A; Radiology Order: CT ABD & PELVIS: IV Contrast Only Test: CT ABD & PELVIS: IV Contrast Only REASON FOR EXAMINATION: Abdomen Pain; ; CLINICAL HISTORY: Abdominal pain.; TECHNIQUE: Multiple axial, sagittal and coronal CT images were obtained through the abdomen and pelvi; s after administration of intravenous contrast material.; COMMENTS:; Moderate large bowel fecal stasis.; Moderate diffuse gaseous dilation of the colon.; Thickening of the rectosigmoid junction with enhancement.; Small sliding hiatal hernia.; The liver is of uniform attenuation without mass or defect. There is no intra or extrahepatic biliary; ductal dilatation. The spleen is normal. The gallbladder is within normal limits. The pancreas is of; normal contour and attenuation characteristics. There is no evidence of adrenal mass.; Both kidneys demonstrate prompt and equal nephrograms. The kidneys are normal in size, shape and conf; iguration. There is no evidence of renal or ureteral mass. No renal or ureteral calculi are identifie; d. There is no hydroureter or hydronephrosis.; No evidence for appendicitis. No evidence for small or large bowel obstruction. There is no evidenc; e of abdominal ascites or lymphadenopathy.; There is no evidence of intrinsic or extrinsic bladder mass. There is no pelvic ascites or lymphadeno; raquel.; Images of the lung bases show no evidence of pleural or parenchymal mass. There are no pleural effusi; ons.; The bony structures are free of lytic or blastic lesions.; IMPRESSION:; Thickened, enhancing rectosigmoid junction suggestive of colitis.; Moderate diffuse gaseous dilation of the colon.; Small sliding hiatal hernia.; Thank you for your kind referral of this patient.; ; Outcome: 07:07 Discharge ordered by Provider. gk1 07:23 Discharge Assessment: patient administered narcotics - yes. Pt provided with safe ml6 discharge. The following High Risk Discharge criteria are identified: None. Discharged to home ambulatory, with significant other. Condition: improved. Discharge instructions given to patient, Instructed on discharge instructions, follow up and referral plans. medication usage, Demonstrated understanding of instructions, medications, Pt was receptive of discharge instructions/ teaching. Prescriptions given X 1. No special radiology studies were completed. Property sent home with patient. :Personal belongings accompany Pt. 07:24 Patient left the ED. ml6 Signatures: Dispatcher [employer] EDMS Janey Ennis, Reg Reg Candy Ritchie,RN RN jo3 Bandar Zuleta, JESSY BLOWER INSULATOR kb5 Dru Benavides DO DO mm11 Dru Gilbert, RN RN ml6 Rochelle Blum,DANIELLA RN ld5 Madelaine Stein,RN RN mlc Erin Davis, Reg Reg hs2 Rajeev Zamudio, DO DO gk1 Davin Ramirez, Reg Reg pm4 Rochelle Vergara lr2 Carmen Miranda RN ko2 Chart Complete MTDD
--- NOTE | 2016-08-21 08:25 | EDDOCDS ---
Physician Documentation [facility] Name: Yumi Segundo Age: 35 yrs Sex: Female : 1980 Arrival Date: 08/19/2016 Time: 01:44 Bed TR7 Private MD: Breana Moncada Disposition: 08/19 07:12 I have independently interviewed and examined the patient, and I agree with the mm11 investigation, diagnosis and treatment plan as documented by the Resident. Disposition: 08/19/16 07:07 Discharged to Home/Self Care. Impression: Hemorrhoids and perianal venous thrombosis. - Condition is Stable. - Discharge Instructions: Hemorrhoidectomy, Care After, Hemorrhoids, Hemorrhoids, [id number]. - Prescriptions for Percocet 5- 325 mg Oral Tablet - take 1 tablet by ORAL route every 6 hours As needed MDD: 4 tabs; 20 tablet. - Medication Reconciliation, Local Pharmacy Hours form. - Follow up: Geovanni Dela Cruz DO; When: 08/22/2016; Reason: Recheck today's complaints, Continuance of care, Ligation/removal of external hemorrhoids. - Problem is new. - Symptoms are unchanged. Historical: - Allergies: no known allergies; - Home Meds: 1. Wellbutrin 75 mg Oral tab 1 tab daily - PMHx: Depression; Anxiety; - PSHx: Tubal ligation; - Social history: Smoking status: Patient uses tobacco products, current every day smoker. No barriers to communication noted, The patient speaks fluent [place], Speaks appropriately for age. - Family history: Not pertinent. - : The pt / caregiver states he / she is not on anticoagulants. Home medication list is obtained from the patient. - Exposure Risk Screening:: None identified. 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 6 in. (167.64 cm) (R); Pain 6/10; 04:08 BP 105 / 57; Pain 5/10; mlc 05:11 BP 100 / 56; Pulse 72; Resp 16; Pulse Ox 97% ; Pain 2/10; mlc 07:17 BP 112 / 61; Pulse 70; Resp 17; Temp 97.9(O); Pulse Ox 97% on R/A; lr2 01:56 Body Mass Index 27.44 (77.11 kg, 167.64 cm) ld5 MDM: 03:01 IV Saline Lock ordered. mm11 03:01 morphine 4 mg IVP every 30 minutes; Document pain score/vitals after each dose (Hold if mm11 SBP < 90mmHg) x2 ordered. 03:01 Ondansetron 4 mg IVP once ordered. mm11 03:02 CBC with Diff Ordered. EDMS 03:02 BMP Ordered. EDMS 03:02 Lipase Ordered. EDMS 03:03 Abdomen, Flat\E\Upright,PA Chest Ordered. EDMS 03:38 CBC with Diff Reviewed. mm11 03:39 Lactic Acid (Vazquez tube on ice) Ordered. EDMS 03:48 Financial registration complete. hs2 04:04 BMP Reviewed. gk1 04:04 Lipase Reviewed. gk1 04:07 [facility] [place] Agreement was scanned into [employer]To Yellow Pages and attached to record. hs2 05:14 CT ABD & PELVIS: IV Contrast Only Ordered. EDMS 05:53 Lactic Acid (Vazquez tube on ice) Reviewed. mm11 05:53 Abdomen, Flat\E\Upright,PA Chest Reviewed. mm11 06:44 HYDROcodone-acetaminophen 4 pack- 5 mg-325 mg 1 packets PO Per package directions; mm11 Dispense with patient. 1 po q4h prn for pain ordered. 06:44 Magnesium Citrate Liquid 300 ml PO once; Dispense home with pt. ordered. mm11 07:16 CT ABD & PELVIS: IV Contrast Only Reviewed. mm11 13:41 T-Sheet-- Draft Copy was scanned into [employer]To Yellow Pages and attached to record. gb 13:41 Radiology Report was scanned into [employer] and attached to record. gb Administered Medications: 03:24 Drug: Ondansetron 4 mg [ondansetron HCl 2 mg/mL intravenous solution (2 mL)] Route: mlc IVP; Site: left antecubital; 04:08 Follow up: Response: Nausea is decreased [facility] 03:25 Drug: morphine 4 mg [morphine 4 mg/mL intravenous cartridge (1 mL)] Route: IVP; Site: mlc left antecubital; 04:08 Follow up: BP 105 / 57; Pain 5/10 Adult; Response: Pain is decreased mlc 04:31 Drug: morphine 4 mg [morphine 4 mg/mL intravenous cartridge (1 mL)] Route: IVP; Site: mlc left antecubital; 05:11 Follow up: BP 100 / 56; Pulse 72 bpm; Resp 16 bpm; Pulse Ox 97% ; Pain 2/10 Adult; mlc Response: Pain is decreased 06:57 Drug: HYDROcodone-acetaminophen 4 pack- 1 packets [hydrocodone 5 mg-acetaminophen 325 mlc mg tablet (1 tabs)] {Co-Signature: ko2 (Carmen Miranda RN).} Route: PO; 06:58 Follow up: Response: Med's dispensed home mlc 06:57 Drug: Magnesium Citrate 300 ml [magnesium citrate oral solution (300 mL)] Route: PO; mlc 06:58 Follow up: Response: Med's dispensed home mlc Signatures: Dispatcher [employer] EDMS Janey Ennis, Reg Reg gb Dru Benavides, DO DO mm11 Dru Gilbert RN RN ml6 Rochelle Blum RN RN ld5 Madelaine Stein RN RN [facility] Erin Davis, Reg Reg hs2 Rajeev Zamudio, DO DO gk1 Carmen Miranda RN ko2 The chart was reviewed and I authenticate all verbal orders and agree with the evaluation and treatment provided.Attachments: 04:07 COUNTS INCLUDE 234 BEDS AT THE [facility] Payment Agreement hs2 13:41 T-Sheet-- Draft Copy gb Chart Complete MTDD
== END 2016-08-19 07:24 | disposition home or self-care (01) ==
LOC: M ED 01:44
DX: K64.5 Perianal venous thrombosis (principal); F41.9 Anxiety disorder, unspecified; F32.9 Major depressive disorder, single episode, unspecified; Z72.0 Tobacco use; Z79.899 Other long term (current) drug therapy
CPT/HCPCS: 36415; 74022; 74177; 80048; 83605; 83690; 85025; 96374; 96375; 96376; 99284; J2405; Q9967

== ENCOUNTER → 2016-10-05 | Outpatient (CLI) | payer BC ==
[2016-10-05 12:42] LABS: BASO % 0.7 % (0.0-1.0); EOS # 0.2 K/mm3 (0.0-0.50); EOS % 2.3 % (0.0-3.0); LARGE UNSTAINED CELL # 0.1 K/mm3 (0.0-0.4); LARGE UNSTAINED CELL % 1.4 % (0.0-4.0); LYMPH # 1.7 K/mm3 (1.5-4.5); LYMPH % 24.1 % (24.0-44.0); MEAN CORPUSCULAR HEMOGLOBIN 31.2 pg (27.0-33.0); MEAN CORPUSCULAR HGB CONC 33.7 g/dl (32.0-36.5); MEAN CORPUSCULAR VOLUME 92.5 fl (80.0-96.0); MONO # 0.2 K/mm3 (0.0-0.8); NEUTROPHILS # 4.7 K/mm3 (1.8-7.7); NEUTROPHILS % 68.5 % (36.0-66.0); PLATELET COUNT, AUTOMATED 213 k/mm3 (150-450); RED CELL DISTRIBUTION WIDTH 11.9 % (11.5-14.5); WHITE BLOOD COUNT 6.9 K/mm3 (4.0-10.0)
[2016-10-05 13:18] LABS: ALBUMIN 3.8 GM/DL (3.2-5.2); ALBUMIN/GLOBULIN RATIO 1.31 (1.00-1.93); ALKALINE PHOSPHATASE 73 U/L (45-117); ALT/SGPT 18 U/L (12-78); ANION GAP 7 MEQ/L (8-16); AST/SGOT 11 U/L (15-37); BILIRUBIN,TOTAL 0.3 MG/DL (0.2-1.0); BLOOD UREA NITROGEN 13 MG/DL (7-18); CALCIUM LEVEL 9.1 MG/DL (8.5-10.1); CARBON DIOXIDE LEVEL 27 MEQ/L (21-32); CHLORIDE LEVEL 108 MEQ/L (98-107); CREATININE FOR GFR 0.81 MG/DL (0.55-1.02); FREE T4 1.12 NG/DL (0.76-1.46); GLOMERULAR FILTRATION RATE > 60.0 (>60); GLUCOSE, FASTING 95 MG/DL (70-105); POTASSIUM SERUM 4.7 MEQ/L (3.5-5.1); SODIUM LEVEL 142 MEQ/L (136-145); TOTAL PROTEIN 6.7 GM/DL (6.4-8.2)
== END ==
LOC: M WUC 10:23
PROVIDERS: ATTEND Family Medicine
DX: Z00.00 Encounter for general adult medical examination without abnormal findings (principal); R60.9 Edema, unspecified

== ENCOUNTER → 2017-03-15 | Outpatient (REF) | payer BC | LOC: M LAB REF 13:17 | PROVIDERS: ATTEND Physician Assistant | DX: J02.9 Acute pharyngitis, unspecified (principal) ==

== ENCOUNTER → 2018-10-31 | Outpatient (REF) | payer BC ==
[~2018-10-31] MED LIST changes: -ACET50TA PO; +IBUP100S44 PO; -IBUP100SUS PO; +MAPA500T17 PO
[2018-10-31 13:15] LABS: BASO # 0.1 10^3/uL (0.0-0.2); EOS # 0.1 10^3/uL (0.0-0.50); EOS % 2.1 % (0.0-3.0); HEMATOCRIT 39.5 % (36.0-47.0); HEMOGLOBIN 13.1 g/dl (12.0-15.5); LYMPH # 1.9 10^3/uL (1.5-4.5); LYMPH % 30.5 % (24.0-44.0); MEAN CORPUSCULAR HEMOGLOBIN 31.5 pg (27.0-33.0); MEAN CORPUSCULAR HGB CONC 33.2 g/dl (32.0-36.5); MONO # 0.4 10^3/uL (0.0-0.8); MONO % 7.1 % (0.0-5.0); NEUTROPHILS # 3.7 10^3/uL (1.8-7.7); PLATELET COUNT, AUTOMATED 257 10^3/uL (150-450); RED BLOOD COUNT 4.16 10^6/uL (4.00-5.40); WHITE BLOOD COUNT 6.2 10^3/uL (4.0-10.0)
[2018-10-31 13:33] LABS: PARTIAL THROMBOPLASTIN TIME 27.6 SECONDS (25.4-37.6)
[2018-10-31 13:37] LABS: INR 0.9; PROTHROMBIN TIME 12.2 SECONDS (12.1-14.4)
[2018-10-31 15:19] LABS: ALBUMIN 4.1 GM/DL (3.2-5.2); ALT/SGPT 28 U/L (12-78); BILIRUBIN,TOTAL 0.3 MG/DL (0.2-1.0); BLOOD UREA NITROGEN 14 MG/DL (7-18); CALCIUM LEVEL 9.2 MG/DL (8.5-10.1); CARBON DIOXIDE LEVEL 24 MEQ/L (21-32); CHLORIDE LEVEL 106 MEQ/L (98-107); CREATININE FOR GFR 0.89 MG/DL (0.55-1.30); GLOMERULAR FILTRATION RATE > 60.0 (>60); GLUCOSE, FASTING 78 MG/DL (70-100); POTASSIUM SERUM 4.8 MEQ/L (3.5-5.1); SODIUM LEVEL 139 MEQ/L (136-145); TOTAL PROTEIN 7.4 GM/DL (6.4-8.2)
== END ==
LOC: M SFHCADAM 11:11
PROVIDERS: ATTEND Family Medicine
DX: Z00.00 Encounter for general adult medical examination without abnormal findings (principal); R23.8 Other skin changes

== ENCOUNTER → 2019-02-15 | Outpatient (REF) | payer BC | LOC: M LAB REF 16:11 | PROVIDERS: ATTEND Physician Assistant | DX: R30.0 Dysuria (principal) ==

== ENCOUNTER → 2019-05-06 | Outpatient (REF) | payer BC | LOC: M SFHCADAM 13:10 | PROVIDERS: ATTEND Family Medicine | DX: Z12.4 Encounter for screening for malignant neoplasm of cervix (principal); N76.0 Acute vaginitis ==

== ENCOUNTER 2021-05-26 09:12 | Emergency (ER) | payer BC ==
[~2021-05-26] VITALS: Ht 167.6 cm; Wt 64.9 kg
--- NOTE | 2021-05-26 12:45 | REP ---
INDICATION: left sided thoracic pain COMPARISON: 08/19/2016 TECHNIQUE: PA and lateral. FINDINGS: The mediastinum and cardiac silhouette are normal. The lung lyles are clear and without acute consolidation, effusion, or pneumothorax. The skeletal structures are intact and normal. IMPRESSION: No acute cardiopulmonary process. <Electronically signed by Tim Sanford > 05/26/21 [id number]
[2021-05-26] MEDS ORDERED: ONDANSETRON 4MG/2ML VIAL IV ONE (13:00)
[2021-05-26] MEDS ORDERED: NS 1,000 ML IV ONE (13:00)
[2021-05-26] MEDS ORDERED: KETOROLAC 30 MG/ML 1ML VIAL IV ONE (13:00)
[2021-05-26 13:55] LABS: BASO # 0.1 10^3/uL (0.0-0.2); BASO % 0.8 % (0.0-1.0); EOS # 0.1 10^3/uL (0.0-0.5); EOS % 1.7 % (0.0-3.0); HEMATOCRIT 41.7 % (36.0-47.0); LYMPH # 2.1 10^3/uL (1.5-5.0); LYMPH % 28.7 % (24.0-44.0); MEAN CORPUSCULAR HEMOGLOBIN 31.7 pg (27.0-33.0); MEAN CORPUSCULAR HGB CONC 33.6 g/dl (32.0-36.5); MEAN CORPUSCULAR VOLUME 94.3 fl (80.0-96.0); MONO # 0.5 10^3/uL (0.0-0.8); MONO % 6.4 % (2.0-8.0); NEUTROPHILS # 4.6 10^3/uL (1.5-8.5); NEUTROPHILS % 62.1 % (36.0-66.0); PLATELET COUNT, AUTOMATED 255 10^3/uL (150-450); RED BLOOD COUNT 4.42 10^6/uL (4.00-5.40); WHITE BLOOD COUNT 7.5 10^3/uL (4.0-10.0)
[2021-05-26 14:22] LABS: CK-MB VALUE MASS < 1.0 NG/ML (<3.6); CPK CREATINE PHOSPHOKINASE 55 U/L (26-192); MB/CK RELATIVE INDEX 1.82 (< OR =4); TROPONIN I < 0.02 NG/ML (< 0.10)
[2021-05-26 14:24] LABS: ALBUMIN 4.2 GM/DL (3.2-5.2); ALT/SGPT 25 U/L (12-78); BILIRUBIN,DIRECT 0.2 MG/DL (0.0-0.2); BILIRUBIN,TOTAL 0.8 MG/DL (0.2-1.0); BLOOD UREA NITROGEN 12 MG/DL (7-18); CALCIUM LEVEL 9.3 MG/DL (8.5-10.1); CARBON DIOXIDE LEVEL 26 MEQ/L (21-32); CHLORIDE LEVEL 107 MEQ/L (98-107); GLOMERULAR FILTRATION RATE > 60.0 (>60); GLUCOSE, FASTING 95 MG/DL (70-100); LIPASE 149 U/L (73-393); POTASSIUM SERUM 4.1 MEQ/L (3.5-5.1); SODIUM LEVEL 139 MEQ/L (136-145); TOTAL PROTEIN 7.1 GM/DL (6.4-8.2)
[2021-05-26 14:56] VITALS: BP 146/63
--- NOTE | 2021-05-29 07:27 | ECGEPIP ---
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
== END 2021-05-26 14:59 | disposition home or self-care (01) ==
LOC: M ED 09:12
DX: R07.89 Other chest pain (principal); R11.0 Nausea; Z87.891 Personal history of nicotine dependence
CPT/HCPCS: 71046; 80048; 80076; 82550; 82553; 83690; 84484; 85025; 85379; 93005; 96374; 96375; 99284; J1885; J2405

== ENCOUNTER → 2021-09-15 | Outpatient (REF) | payer BC ==
[2021-09-15 13:58] LABS: FREE T4 0.98 NG/DL (0.76-1.46); THYROID STIMULATING HORMONE 0.846 uIU/ML (0.358-3.740)
== END ==
LOC: M SFHCADAM 11:11
PROVIDERS: ATTEND Family Medicine
DX: F41.8 Other specified anxiety disorders (principal)

== ENCOUNTER → 2022-05-18 | Outpatient (CLI) | payer BC | LOC: M WHC 14:58 | PROVIDERS: ATTEND Family Medicine | DX: Z12.31 Encounter for screening mammogram for malignant neoplasm of breast (principal) ==

== ENCOUNTER → 2022-06-28 | Outpatient (CLI) | payer BC | LOC: M WHC 08:00 | PROVIDERS: ATTEND Family Medicine | DX: Z12.31 Encounter for screening mammogram for malignant neoplasm of breast (principal) ==

== ENCOUNTER → 2023-03-16 | Outpatient (CLI) | payer BC | LOC: M WHC 13:41 | PROVIDERS: ATTEND Physician Assistant | DX: N92.0 Excessive and frequent menstruation with regular cycle (principal) ==

== ENCOUNTER → 2023-05-08 | Outpatient (CLI) | payer BC | LOC: M WHC 12:03 | PROVIDERS: ATTEND Physician Assistant | DX: N83.202 Unspecified ovarian cyst, left side (principal) ==

== ENCOUNTER → 2023-10-11 | Outpatient (REF) | payer BC ==
[2023-10-11 14:36] LABS: BASO # 0.1 10^3/uL (0.0-0.2); BASO % 1.5 % (0.0-1.0); EOS # 0.3 10^3/uL (0.0-0.5); EOS % 4.8 % (0.0-3.0); HEMATOCRIT 41.7 % (36.0-47.0); HEMOGLOBIN 13.8 g/dl (12.0-15.5); LYMPH # 1.6 10^3/uL (1.5-5.0); LYMPH % 30.1 % (24.0-44.0); MEAN CORPUSCULAR HEMOGLOBIN 31.4 pg (27.0-33.0); MEAN CORPUSCULAR HGB CONC 33.1 g/dl (32.0-36.5); MEAN CORPUSCULAR VOLUME 94.8 fl (80.0-96.0); MONO # 0.4 10^3/uL (0.0-0.8); MONO % 7.3 % (2.0-8.0); NEUTROPHILS # 2.9 10^3/uL (1.5-8.5); NEUTROPHILS % 56.1 % (36.0-66.0); PLATELET COUNT, AUTOMATED 285 10^3/uL (150-450); WHITE BLOOD COUNT 5.2 10^3/uL (4.0-10.0)
[2023-10-11 14:46] LABS: FREE T4 1.17 NG/DL (0.89-1.76)
[2023-10-11 14:48] LABS: ALBUMIN 3.8 G/DL (3.2-5.2); ALKALINE PHOSPHATASE 51 U/L (46-116); ALT/SGPT 15 U/L (7.0-40); AST/SGOT 10 U/L (<34); BILIRUBIN,TOTAL 0.4 MG/DL (0.3-1.2); BLOOD UREA NITROGEN 15 MG/DL (9-23); CALCIUM LEVEL 9.3 MG/DL (8.5-10.1); CARBON DIOXIDE LEVEL 29 MMOL/L (20-31); CHLORIDE LEVEL 107 MMOL/L (98-107); CHOLESTEROL LEVEL 207 MG/DL (<200); CHOLESTEROL RISK RATIO 2.52 (<5); CREATININE FOR GFR 0.84 MG/DL (0.55-1.30); GLOMERULAR FILTRATION RATE > 60.0 (>58); GLUCOSE, FASTING 99 MG/DL (60-100); LDL CHOLESTEROL 108.6 MG/DL (<100); POTASSIUM SERUM 4.9 MMOL/L (3.5-5.1); SODIUM LEVEL 140 MMOL/L (136-145); TOTAL PROTEIN 6.6 G/DL (5.7-8.2); TRIGLYCERIDES LEVEL 82 MG/DL (<150)
== END ==
LOC: M SFHCADAM 08:20
PROVIDERS: ATTEND Physician Assistant
DX: F41.8 Other specified anxiety disorders (principal); Z13.220 Encounter for screening for lipoid disorders

== ENCOUNTER → 2023-11-02 | Outpatient (CLI) | payer BC | LOC: M WHC 07:04 | PROVIDERS: ATTEND Family Medicine | DX: Z12.31 Encounter for screening mammogram for malignant neoplasm of breast (principal) ==

== ENCOUNTER → 2023-12-29 | Outpatient (CLI) | payer BC | LOC: M WHC 09:19 | PROVIDERS: ATTEND Nurse Practitioner Family | DX: N83.202 Unspecified ovarian cyst, left side (principal); D25.9 Leiomyoma of uterus, unspecified; N88.8 Other specified noninflammatory disorders of cervix uteri ==

== ENCOUNTER → 2024-01-31 | Outpatient (REF) | payer BC | LOC: M SFHCWAGY 13:35 | PROVIDERS: ATTEND Obstetrics & Gynecology | DX: D25.1 Intramural leiomyoma of uterus (principal) ==

== ENCOUNTER → 2024-11-05 | Outpatient (CLI) | payer BC | LOC: M WHC 06:56 | PROVIDERS: ATTEND Physician Assistant | DX: Z12.31 Encounter for screening mammogram for malignant neoplasm of breast (principal) ==

== ENCOUNTER → 2025-04-14 | Outpatient (REF) | payer BC ==
[2025-04-14 13:28] LABS: PLATELET COUNT, AUTOMATED 300 10^3/uL (150-450)
[2025-04-14 13:33] LABS: ALT/SGPT 19.0 U/L (7.0-40); AST/SGOT 15.0 U/L (<34); CALCIUM LEVEL 9.3 MG/DL (8.5-10.1); CARBON DIOXIDE LEVEL 26.0 MMOL/L (20-31); CHLORIDE LEVEL 106.0 MMOL/L (98-107); CHOLESTEROL LEVEL 219.0 MG/DL (<200); CHOLESTEROL RISK RATIO 3.88 (<5); CREATININE FOR GFR 0.96 MG/DL (0.55-1.30); FREE T4 1.19 NG/DL (0.89-1.76); GLOMERULAR FILTRATION RATE 75.3 (>58); LDL CHOLESTEROL 137.0 MG/DL (<100); NON-HDL-C 162.6 MG/DL; POTASSIUM SERUM 4.8 MMOL/L (3.5-5.1); SODIUM LEVEL 139.0 MMOL/L (136-145); TOTAL 25(OH) VITAMIN D 40.1 NG/ML (20.0-100.0); TRIGLYCERIDES LEVEL 128.0 MG/DL (<150)
[2025-04-14 13:59] LABS: ESTIMATED AVERAGE GLUCOSE 100.0 MG/DL (60-110)
== END ==
LOC: M SFHCADAM 08:51
PROVIDERS: ATTEND Physician Assistant
DX: F90.9 Attention-deficit hyperactivity disorder, unspecified type (principal); F32.9 Major depressive disorder, single episode, unspecified; E66.3 Overweight; Z13.220 Encounter for screening for lipoid disorders